=== PATIENT | male | born 1960 | race Caucasian/White ===

== ENCOUNTER → 2018-08-28 | Outpatient (CLI) | payer BC ==
[~2018-08-28] MED LIST: GADOBENATE DIMEGLUMINE 1 ML IV ONE
--- NOTE | 2018-08-28 16:26 | Diagnostic Imaging Report ---
Exam: Brain MRI without and with IV contrast History: Vertigo Comparison studies: Prior brain MRI of 11/12/2010 is unavailable on the PACS for comparison at time of dictation. Technique: Precontrast sagittal and axial T2 FS, axial DWI, precontrast axial T1 FLAIR, axial T2*GRE and postcontrast axial coronal T1 FS and axial T2 FLAIR through the whole brain. Additional 3-D T2 with axial, coronal and sagittal reformats, axial T1 FLAIR and postcontrast axial and coronal T1 FLAIR through the IACs were obtained. Intravenous contrast: 20 cc MultiHance. Findings: Scalp: No abnormal signal. No masses. Bone marrow: Normal in signal intensity. Brain sulci: Appropriate for age. Ventricles: Normal in size . No hydrocephalus. Parenchyma: No abnormal signal intensities. Enhancing under malleus. No masses, hemorrhage, or acute or chronic ischemic insults. Cerebellopontine angle cisterns: No mass. IACs: Normal nerves VII and VIII. Labyrinths: Grossly normal formation. No abnormal signal intensity or enhancement. Mastoids: No abnormal signal intensity or enhancement. Suprasellar region: No abnormalities. Craniocervical junction: Patent foramen magnum. No Chiari one malformation. Vessels: Normal flow-voids in the arteries and sinuses. Right vertebral artery is hypoplastic. IMPRESSION: No abnormalities. Signed by: Dr. Ryan Colin M.D. on 08/28/2018 4:22 PM
== END ==
LOC: MRI 14:09
PROVIDERS: ATTEND Psychiatry & Neurology Neurology
DX: R42 Dizziness and giddiness (principal)
CPT/HCPCS: 70553

== ENCOUNTER → 2019-01-01 | Outpatient (CLI) | payer BC ==
--- NOTE | 2019-01-01 16:14 | Diagnostic Imaging Report ---
Radiographs of the left finger - 3 views HISTORY: Abnormal growth on left fifth digit area COMPARISON: None available. FINDINGS: Bones: No acute displaced fracture. Osseous alignment is within normal limits. Joints: The joint spaces are well-maintained. Soft tissues: Mild soft tissue swelling about the fifth finger. No radiopaque foreign body. IMPRESSION: Mild soft tissue swelling about the fifth finger. No radiopaque foreign body. Signed by: Dr. Rafael Franco M.D. on 01/01/2019 4:10 PM
== END ==
LOC: RAD 14:56
PROVIDERS: ATTEND Internal Medicine
DX: M79.642 Pain in left hand (principal)

== ENCOUNTER → 2019-05-03 | Day surgery (SDC) | payer BC ==
[2019-05-02 11:22] LABS: BASOPHILS % 0.5 % (0.0-1.0); EOSINOPHILS # (AUTO) 0.2 (0.0-0.4); EOSINOPHILS % 2.4 % (0.0-6.0); HEMOGLOBIN 15.3 g/dL (14.0-18.0); LYMPHOCYTES # (AUTO) 2.5 (1.0-3.2); LYMPHOCYTES % 31.1 % (18.0-39.1); MEAN CORPUSCULAR HEMOGLOBIN 28.8 pg (28-32); MEAN CORPUSCULAR HGB CONC 33.3 g/dL (31-35); MEAN CORPUSCULAR VOLUME 86.5 fL (81-99); MONOCYTES # (AUTO) 0.5 (0.2-0.8); MONOCYTES % 6.6 % (4.4-11.3); NEUTROPHILS # (AUTO) 4.8 (2.1-6.9); NEUTROPHILS % 59.2 % (38.7-80.0); PLATELET COUNT 238 x10e3/uL (140-360); RED BLOOD COUNT 5.32 x10e6/uL (4.3-5.7); RED CELL DISTRIBUTION WIDTH 12.9 % (11.7-14.4)
[~2019-05-03] MED LIST changes: +ANDRODERM1 EAC3 TOP; +CYMBALTA30 MG PO; +FENTANYL CITRATE/PF 100MCG/2 ML INJ ONE; -GADOBENATE DIMEGLUMINE 1 ML IV ONE; +JANUVIA100 MG PO; +LAMOTRIGINE100 MG PO; +LEVOTHYROXINE125 MCG PO; +LIDOCAINE HCL 2% LOCAL INJ 5 ML SDV VIAL INJ ONE; +LISINOPRIL10 MG PO; +METFORMIN HCL850 MG PO; +MIDAZOLAM HCL 2 MG/2 ML VIAL ONE; +MIRTAZAPINE30 M1 PO; +OXCARBAZEPINE600 MG PO; +PROPOFOL IV EMULSION 10 MG/ML 50 ML VIAL ONE; +VENLAFAXINE HCL75 MG PO
--- OUTSIDE RECORDS SUMMARY | 2019-05-03 05:34 | XMS REPORT | Summary of Care ---
Author Author [facility] Organization [facility] Address Unknown Phone Unavailable Encounter CORDELIA Tompkins(DANE) [id number] Date(s): 02/01/17 - 02/02/17 [facility] [address] [place] [address]- Discharge Diagnosis: Acute back pain with sciatica Discharge Disposition: Home or Self Care Attending Physician: Opal Lobo DO Vital Signs 1 2 3 Most recent to oldest [Reference Range]: 185.42 cm (02/01/17 11:58 PM) Height 98.0 DegF (02/02/17 2:57 AM) 97.6 DegF (02/01/17 11:58 PM) Temperature Oral [96.4-99.1 DegF] 134/87 mmHg (02/02/17 3:41 AM) 132/91 mmHg (02/02/17 2:57 AM) 146/76 mmHg *HI* (02/01/17 11:58 PM) Blood Pressure [90-140/60-90 mmHg] 18 BRMIN (02/02/17 3:41 AM) 18 BRMIN (02/02/17 2:57 AM) 20 BRMIN (02/01/17 11:58 PM) Respiratory Rate [14-20 BRMIN] 92 bpm (02/02/17 3:41 AM) 100 bpm (02/02/17 2:57 AM) 107 bpm *HI* (02/01/17 11:58 PM) Peripheral Pulse Rate [60-100 bpm] 132.727 kg (02/01/17 11:58 PM) Weight 38.61 m2 (02/01/17 11:58 PM) Body Mass Index Problem List Condition Effective Dates Status Health Status Informant Diabetes(Confirmed) Active HTN Active (hypertension)(Confi rmed) HTN Active (hypertension)(Confi rmed) Hypopituitarism(Conf Active irmed) Spondylitis(Confirme Active d) Osteoarthritis(Confi Active rmed) Allergies, Adverse Reactions, Alerts Substance Reaction Severity Status NKDA Active Medications dexamethasone 8 mg, Route: IVP, ONCE, Dosing Weight 132.727, kg, Priority: STAT, Start date: 0 02/02/17 1:21:00 CDT, Stop date: 02/02/17 1:21:00 CDT Start Date: 02/02/17 Stop Date: 02/02/17 Status: Completed ketOROLAC 30 mg, Route: IVP, Drug form: INJ, ONCE, Dosing Weight 132.727, kg, Priority: ST AT, Start date: 02/02/17 1:22:00 CDT, Stop date: 02/02/17 1:22:00 CDT Start Date: 02/02/17 Stop Date: 02/02/17 Status: Completed morphine Sulfate 2 mg, Route: IVP, ONCE, Dosing Weight 132.727, kg, Priority: STAT, Start date: 0 02/02/17 1:22:00 CDT, Stop date: 02/02/17 1:22:00 CDT Start Date: 02/02/17 Stop Date: 02/02/17 Status: Completed Tylenol with Codeine #4 oral tablet 1 tab, PO, Q6H, PRN Pain, not to exceed 4000 mg acetaminophen per day, X 7 day, # 28 tab, 0 Refill(s) Start Date: 02/02/17 Stop Date: 02/09/17 Status: Ordered Valium 10 mg, Route: IVP, Drug form: INJ, ONCE, Dosing Weight 132.727, kg, Priority: ST AT, Start date: 02/02/17 1:22:00 CDT, Stop date: 02/02/17 1:22:00 CDT Start Date: 02/02/17 Stop Date: 02/02/17 Status: Completed Valium 5 mg oral tablet 5 mg=1 tab, PO, TID, PRN MUSCLE SPASM, X 7 day, # 20 tab, 0 Refill(s) Start Date: 02/02/17 Stop Date: 02/09/17 Status: Ordered Results No data available for this section Immunizations No data available for this section Procedures No data available for this section Social History Social History Type Response Smoking Status Never smoker; Exposure to Tobacco Smoke None; Cigarette Smoking Last 365 Days No; Reg Smoking Cessation Counseling No Assessment and Plan No data available for this section
--- OUTSIDE RECORDS SUMMARY | 2019-05-03 05:34 | XMS REPORT | Summary of Care ---
Author Author [facility] Organization [facility] Address Unknown Phone Unavailable Encounter CORDELIA Tompkins(DANE) [id number] Date(s): 02/05/17 - 02/05/17 [facility] [address] [place] [address]- Discharge Diagnosis: Dorsalgia Discharge Disposition: Home or Self Care Attending Physician: Karlo Franks MD Vital Signs 1 2 3 Most recent to oldest [Reference Range]: 185.42 cm (02/05/17 10:47 AM) Height 98.4 DegF (02/05/17 1:38 PM) 98.2 DegF (02/05/17 10:47 AM) Temperature Oral [96.4-99.1 DegF] 135/84 mmHg (02/05/17 1:38 PM) 108/75 mmHg (02/05/17 11:32 AM) 101/61 mmHg (02/05/17 10:47 AM) Blood Pressure [90-140/60-90 mmHg] 16 BRMIN (02/05/17 1:38 PM) 18 BRMIN (02/05/17 10:47 AM) Respiratory Rate [14-20 BRMIN] 88 bpm (02/05/17 1:38 PM) 106 bpm *HI* (02/05/17 11:26 AM) 120 bpm *HI* (02/05/17 10:47 AM) Peripheral Pulse Rate [60-100 bpm] 132.727 kg (02/05/17 10:47 AM) Weight 38.61 m2 (02/05/17 10:47 AM) Body Mass Index Problem List Condition Effective Dates Status Health Status Informant Back pain(Confirmed) Active Diabetes(Confirmed) Active HTN Active (hypertension)(Confi rmed) HTN Active (hypertension)(Confi rmed) Hypopituitarism(Conf Active irmed) Spondylitis(Confirme Active d) Osteoarthritis(Confi Active rmed) Sciatic Active pain(Confirmed) Allergies, Adverse Reactions, Alerts Substance Reaction Severity Status NKDA Active Medications dexamethasone 10 mg, Route: IM, ONCE, Dosing Weight 132.727, kg, Priority: STAT, Start date: 0 02/05/17 11:19:00 CDT, Stop date: 02/05/17 11:19:00 CDT Start Date: 02/05/17 Stop Date: 02/05/17 Status: Completed morphine Sulfate 4 mg, Route: IVP, ONCE, Dosing Weight 132.727, kg, Priority: STAT, Start date: 0 02/05/17 12:11:00 CDT, Stop date: 02/05/17 12:11:00 CDT Start Date: 02/05/17 Stop Date: 02/05/17 Status: Completed [place] 10/325 oral tablet 1 tab, PO, Q6H, PRN Pain, X 5 day, # 19 tab, 0 Refill(s) Start Date: 02/05/17 Stop Date: 02/10/17 Status: Ordered [place] 10/325 oral tablet 1 tab, Route: PO, Drug Form: TAB, Dosing Weight 132.727, kg, ONCE, STAT, Start d ate: 02/05/17 11:19:00 CDT, Stop date: 02/05/17 11:19:00 CDT Start Date: 02/05/17 Stop Date: 02/05/17 Status: Completed NS (Bolus) IV 1,000 mL, 1,000 ml/hr, Infuse Over: 1 hr, Route: IV, 1,000, Drug form: INJ, ONCE , Priority: STAT, Dosing Weight 132.727 kg, Start date: 02/05/17 11:44:00 CDT, D uration: 1 doses or times, Stop date: 02/05/17 11:44:00 CDT Start Date: 02/05/17 Stop Date: 02/05/17 Status: Completed predniSONE 20 mg oral tablet See Special Instructions, PO, Daily, 4 day regimen: Day 1 - 40 mg (2 tabs) Day 2 - 30 mg (1 1/2 tabs) Day 3 - 20 mg (1 tab) Day 4 - 10 mg (1/2 tab), X 4 day, # 6 tab, 0 Refill(s) Start Date: 02/05/17 Stop Date: 02/09/17 Status: Ordered Valium 10 mg, Route: PO, ONCE, Dosing Weight 132.727, kg, Priority: STAT, Start date: 0 02/05/17 11:19:00 CDT, Stop date: 02/05/17 11:19:00 CDT Start Date: 02/05/17 Stop Date: 02/05/17 Status: Completed Zofran 4 mg, Route: IVP, Drug form: INJ, ONCE, Dosing Weight 132.727, kg, Priority: STA T, Start date: 02/05/17 12:11:00 CDT, Stop date: 02/05/17 12:11:00 CDT Start Date: 02/05/17 Stop Date: 02/05/17 Status: Completed Results No data available for this section Immunizations No data available for this section Procedures No data available for this section Social History Social History Type Response Smoking Status Never smoker; Exposure to Tobacco Smoke None; Cigarette Smoking Last 365 Days No; Reg Smoking Cessation Counseling No Assessment and Plan No data available for this section
--- OUTSIDE RECORDS SUMMARY | 2019-05-03 05:34 | XMS REPORT ---
Author Author [facility] Address Unknown Phone Unavailable Care Team Providers Care Director Digital Communications Name Role Phone ALY CORDOVA Unavailable Unavailable LANDON RAMSAY Unavailable Unavailable Problems This patient has no known problems. Allergies, Adverse Reactions, Alerts This patient has no known allergies or adverse reactions. Medications This patient has no known medications. Results Test Description Test Time Test Comments Text Results Atomic Results Result Comments FINGER LEFT 2019-01-01 16:09:00 [facility] [address] [place] [address] Patient Name: MIRZA JARVIS MR #: [id number] : 1960 Age/Sex: 58/M Req #: [id number] Adm Physician: Ordered by: ALY ESPINOZA MD Report #: [id number] Location: [facility] Room/Bed: Procedure: [id number] DX/FINGER LEFT Exam Date: 01/01/19 Exam Time: 1550 REPORT STATUS: Signed Radiographs of the left finger - 3 views HISTORY: Abnor mal growth on left fifth digit area COMPARISON: None available. FINDINGS: Bones: No acute displaced fracture. Osseous alignment is within normal limits. Joints: The joint spaces are well-maintained. Soft tissues: Mild soft tissue swelling about the fifth finger. No radiopaque foreign body. IMPRESSION: Mild soft tissue swelling about the fifth finger. No radiopaque foreign body. Signed by: Dr. Rafael Franco M.D. on 01/01/2019 4:10 PM Dictated By: RAFAEL FRANCO MD, MD 09 Transcribed By: SHAYLEE on 01/01/191609 COPY TO: ALY CORDOVA MD MRI BRAIN WOW 2018-08-28 16:17:00 [place] [address] Patient Name: MIRZA JARVIS MR #: [id number] : 1960 Age/Sex: 58/M Req #: [id number] Adm Physician: Ordered by: LANDON RAMSAY MD Report #: [id number] Location: MRI Room/Bed: Procedure: [id number] MRI/MRI BRAIN WOW Exam Date: Exam Time: REPORT STATUS: Signed Exam: Brain MRI without and with IV contrast History: Vertigo Comparison studies: Prior brain MRI of 11/12/2010 is unavailable on the PACS for comparison at time of dictation. Technique: Precontrast sagittal and axial T2 FS, axial DWI, precontrast axial T1 FLAIR, axial T2*GRE and postcontrast axial coronal T1 FS and axial T2 FLAIR through the whole brain. Additional 3-D T2 with axial, coronal and sagittal reformats, axial T1 FLAIR and postcontrast axial and coronal T1 FLAIR through the IACs were obtained. Intravenous contrast: 20 cc MultiHance. Findings: Scalp: No abnormal signal. No masses. Bone marrow: Normal in signal intensity. Brain sulci: Appropriate for age. Ventricles: Normal in size . No hydrocephalus. Parenchyma: No abnormal signal intensities. Enhancing under malleus. No masses, hemorrhage, or acute or chronic ischemic insults. Cerebellopontine angle cisterns: No mass. IACs: Normal nerves VII and VIII. Labyrinths: Grossly normal formation. No abnormal signal intensity or enhancement. Mastoids: No abnormal signal intensity or enhancement. Suprasellar region: No abnormalities. Craniocervical junction: Patent foramen magnum. No Chiari one malformation. Vessels: Normal flow-voids in the arteries and sinuses. Right vertebral artery is hypoplastic. IMPRESSION: No abnormalities. Signed by: Dr. Jamie Colin M.D. on 08/28/2018 4:22 PM Dictated By: JAMIE COLIN MD [id number] Transcribed By: SHAYLEE on 08/28/18 1622 COPY TO: LANDON RAMSAY MD
--- OUTSIDE RECORDS SUMMARY | 2019-05-03 05:34 | XMS REPORT | Continuity of Care Document ---
Author Author [facility] Interface Address Unknown Phone Unavailable Problems Problem Status Onset Date Classification Date Reported Comments Source Discharge Diagnosis: Dorsalgia 02/05/2017 02/08/2017 [facility] BACK PAIN Active 02/05/2017 [facility] Discharge Diagnosis: Acute back pain with sciatica 02/02/2017 02/05/2017 [facility] Discharge Diagnosis: Other spondylosis with radiculopathy, lumbosacral region 02/01/2017 02/04/2017 [facility] Diabetes Active Problem 02/08/2017 [facility] HTN (<span ID="[id number]">Confirmed</span>) Active Problem 02/08/2017 [facility] HTN (<span ID="[id number]">Confirmed</span>) Active Problem 02/08/2017 [facility] Hypopituitarism Active Problem 02/08/2017 [facility] Spondylitis Active Problem 02/08/2017 [facility] Osteoarthritis Active Problem 02/08/2017 [facility] Back pain Active Problem 02/08/2017 [facility] Sciatic pain Active Problem 02/08/2017 [facility] Medications Medication Details Route Status Patient Instructions Ordering Provider Order Date Source Acetaminophen 325 MG / Hydrocodone Bitartrate 10 MG Oral Tablet [Cathay 10/325] 1 tab, PO, Q6H, PRN Pain, X 5 day, # 19 tab, 0 Refill(s) Active 02/05/2017 [facility] predniSONE 20 mg oral tablet See Special Instructions, PO, Daily, 4 day regimen: Day 1 - 40 mg (2 tabs) Day 2 - 30 mg (1 1/2 tabs) Day 3 - 20 mg (1 tab) Day 4 - 10 mg (1/2 tab), X 4 day, # 6 tab, 0 Refill(s) Active 02/05/2017 [facility] Zofran 4 mg, Route: IVP, Drug form: INJ, ONCE, Dosing Weight 132.727, kg, Priority: STAT, Start date: 02/05/17 12:11:00 CDT, Stop date: 02/05/17 12:11:00 CDT Inactive 02/05/2017 [facility] Morphine 4 mg, Route: IVP, ONCE, Dosing Weight 132.727, kg, Priority: STAT, Start date: 02/05/17 12:11:00 CDT, Stop date: 02/05/17 12:11:00 CDT Inactive 02/05/2017 [facility] Sodium Chloride 0.154 MEQ/ML Injectable Solution 1,000 mL, 1,000 ml/hr, Infuse Over: 1 hr, Route: IV, 1,000, Drug form: INJ, ONCE, Priority: STAT, Dosing Weight 132.727 kg, Start date: 02/05/17 11:44:00 CDT, Duration: 1 doses or times, Stop date: 02/05/17 11:44:00 CDT Inactive 02/05/2017 [facility] Dexamethasone 10 mg, Route: IM, ONCE, Dosing Weight 132.727, kg, Priority: STAT, Start date: 02/05/17 11:19:00 CDT, Stop date: 02/05/17 11:19:00 CDT Inactive 02/05/2017 [facility] Acetaminophen 325 MG / Hydrocodone Bitartrate 10 MG Oral Tablet [Cathay 10/325] 1 tab, Route: PO, Drug Form: TAB, Dosing Weight 132.727, kg, ONCE, STAT, Start date: 02/05/17 11:19:00 CDT, Stop date: 02/05/17 11:19:00 CDT Inactive 02/05/2017 [facility] Valium 10 mg, Route: PO, ONCE, Dosing Weight 132.727, kg, Priority: STAT, Start date: 02/05/17 11:19:00 CDT, Stop date: 02/05/17 11:19:00 CDT Inactive 02/05/2017 [facility] Diazepam 5 MG Oral Tablet [Valium] 5 mg=1 tab, PO, TID, PRN MUSCLE SPASM, X 7 day, # 20 tab, 0 Refill(s) Active 02/02/2017 [facility] Acetaminophen 300 MG / Codeine Phosphate 60 MG Oral Tablet [Tylenol with Codeine #4] 1 tab, PO, Q6H, PRN Pain, not to exceed 4000 mg acetaminophen per day, X 7 day, # 28 tab, 0 Refill(s) Active 02/02/2017 [facility] Morphine 2 mg, Route: IVP, ONCE, Dosing Weight 132.727, kg, Priority: STAT, Start date: 02/02/17 1:22:00 CDT, Stop date: 02/02/17 1:22:00 CDT Inactive 02/02/2017 [facility] Ketorolac 30 mg, Route: IVP, Drug form: INJ, ONCE, Dosing Weight 132.727, kg, Priority: STAT, Start date: 02/02/17 1:22:00 CDT, Stop date: 02/02/17 1:22:00 CDT Inactive 02/02/2017 [facility] Valium 10 mg, Route: IVP, Drug form: INJ, ONCE, Dosing Weight 132.727, kg, Priority: STAT, Start date: 02/02/17 1:22:00 CDT, Stop date: 02/02/17 1:22:00 CDT Inactive 02/02/2017 [facility] Dexamethasone 8 mg, Route: IVP, ONCE, Dosing Weight 132.727, kg, Priority: STAT, Start date: 02/02/17 1:21:00 CDT, Stop date: 02/02/17 1:21:00 CDT Inactive 02/02/2017 [facility] Ketorolac Tromethamine 10 MG Oral Tablet 10 mg=1 tab, PO, TID, PRN Pain, X 5 day, # 15 tab, 0 Refill(s) Active 02/01/2017 [facility] Cyclobenzaprine hydrochloride 10 MG Oral Tablet [Flexeril] 10 mg, PO, TID, PRN Muscle Spasm, X 7 day, # 30 tab, 0 Refill(s) Active 02/01/2017 [facility] Acetaminophen 325 MG / Hydrocodone Bitartrate 5 MG Oral Tablet [Cathay 5/325] 1 tab, Route: PO, Drug Form: TAB, Dosing Weight 132.273, kg, ONCE, STAT, Start date: 02/01/17 7:55:00 CDT, Stop date: 02/01/17 7:55:00 CDT Inactive 02/01/2017 [facility] Flexeril 10 mg, Route: PO, ONCE, Dosing Weight 132.273, kg, Priority: STAT, Start date: 02/01/17 7:55:00 CDT, Stop date: 02/01/17 7:55:00 CDT Inactive 02/01/2017 [facility] Ketorolac 60 mg, Route: IM, ONCE, Dosing Weight 132.273, kg, Priority: STAT, Start date: 02/01/17 7:55:00 CDT, Stop date: 02/01/17 7:55:00 CDT Inactive 02/01/2017 [facility] Allergies, Adverse Reactions, Alerts Substance Category Reaction Severity Reaction type Status Date Reported Comments Source Immunizations Immunization Date Given Site Status Last Updated Comments Source Results Order Name Results Value Reference Range Date Interpretation Comments Source Abdomen/Pelvis wo IV contrast CT Abdomen/Pelvis wo IV contrast CT Patient Name: MIRZA JARVIS : 1960; Age: 57 years y/o Male MR: [id number] Study: Abdomen/Pelvis wo IV contrast CT 02/05/2017 11:18 AM CDT Referring physician:Karlo Franks MD Clinical Indication: Back pain; Back pain for 1 week, radiating to upper back and lower left leg. lumbar pain with radiculopathy. 3rd visit - dlp: 1138.42; Comparison: None TECHNIQUE: Sequential trans-axial images were obtained with a multi-detector helical CT without administration of IV contrast. Coronal and sagittal reconstructions were obtained. FINDINGS: LUNG BASES: 2 mm noncalcified nodule right middle lobe, image 4 series 2. Mild atelectatic or fibrotic changes within the right lung base. No pleural effusion. Heart size normal. ABDOMINAL ORGANS: No focal liver or splenic abnormality. 5 mm nonobstructive right renal lower pole calyceal calculus. No other urinary tract calculus. No ureteral dilatation or obstruction. The adrenals, pancreas and gallbladder are unremarkable. PERITONEUM AND RETROPERITONEUM: No abdominal or pelvic lymphadenopathy. No free intraperitoneal air. No abnormal fluid collection identified in the abdomen or pelvis. The abdominal aorta is unremarkable. BOWEL: No bowel abnormality identified in the abdomen or pelvis. The appendix is unremarkable. PELVIS: No pelvic mass. Bladder is unremarkable. BONES: Mild facet degenerative changes within the lumbar spine at L4-L5. Disc spaces are relatively well-maintained. No other bony lesion appreciated within the lumbar spine or pelvis. IMPRESSION: 5 mm nonobstructive right renal lower pole calyceal calculus. No urinary tract obstruction or ureteral calculus, however. No other acute abdominal or pelvic finding. Mild right lower lobe subsegmental atelectasis or fibrosis. 2 mm noncalcified nodule in the right middle lobe. Mild lower lumbar spine degenerative changes. SL: [id number] 02/05/2017 - - Read by: Jer Victoria MD Dictated Date/time: 02/05/17 11:55 Electronically Signed by: Jer Victoria MD 02/05/17 12:03 FINAL REPORT [facility] Vital Signs Vital Sign Value Date Comments Source Temperature Oral (F) 98.4 F 02/05/2017 [facility] Systolic (mm Hg) 135 02/05/2017 [facility] Diastolic (mm Hg) 84 02/05/2017 [facility] Respitory Rate 16 02/05/2017 [facility] Heart Rate 88 02/05/2017 [facility] Systolic (mm Hg) 108 02/05/2017 [facility] Diastolic (mm Hg) 75 02/05/2017 [facility] Heart Rate 106 02/05/2017 [facility] Weight 132.727 02/05/2017 [facility] BMI Calculated 38.61 02/05/2017 [facility] Height 185.42 cm 02/05/2017 [facility] Temperature Oral (F) 98.2 F 02/05/2017 [facility] Heart Rate 120 02/05/2017 [facility] Respitory Rate 18 02/05/2017 [facility] Systolic (mm Hg) 101 02/05/2017 [facility] Diastolic (mm Hg) 61 02/05/2017 [facility] Systolic (mm Hg) 134 02/02/2017 [facility] Diastolic (mm Hg) 87 02/02/2017 [facility] Heart Rate 92 02/02/2017 [facility] Respitory Rate 18 02/02/2017 [facility] Systolic (mm Hg) 132 02/02/2017 [facility] Diastolic (mm Hg) 91 02/02/2017 [facility] Temperature Oral (F) 98.0 F 02/02/2017 [facility] Heart Rate 100 02/02/2017 [facility] Respitory Rate 18 02/02/2017 [facility] Weight 132.727 02/02/2017 [facility] Temperature Oral (F) 97.6 F 02/02/2017 [facility] Respitory Rate 20 02/02/2017 [facility] Height 185.42 cm 02/02/2017 [facility] BMI Calculated 38.61 02/02/2017 [facility] Heart Rate 107 02/02/2017 [facility] Systolic (mm Hg) 146 02/02/2017 [facility] Diastolic (mm Hg) 76 02/02/2017 [facility] Systolic (mm Hg) 138 02/01/2017 [facility] Diastolic (mm Hg) 75 02/01/2017 [facility] Heart Rate 87 02/01/2017 [facility] Temperature Oral (F) 98.1 F 02/01/2017 [facility] Heart Rate 95 02/01/2017 [facility] Weight 132.273 02/01/2017 [facility] BMI Calculated 38.47 02/01/2017 [facility] Temperature Oral (F) 97.8 F 02/01/2017 [facility] Height 185.42 cm 02/01/2017 [facility] Heart Rate 115 02/01/2017 [facility] Respitory Rate 18 02/01/2017 [facility] Systolic (mm Hg) 148 02/01/2017 [facility] Diastolic (mm Hg) 89 02/01/2017 [facility] Encounters Location Location Details Encounter Type Encounter Number Reason For Visit Attending Provider ADM Date DC Date Status Source [facility] Emergency [id number] Shahram Paredes 02/01/2017 02/01/2017 [facility] Emergency [id number] Opal Hyatten 02/02/2017 02/02/2017 [facility] Emergency [id number] Karlo Franks 02/05/2017 02/05/2017 [facility] Outpatient [id number] MARIN ALMANZA 02/17/2017 Active [facility] Procedures Procedure Code Date Perfomer Comments Source
--- OUTSIDE RECORDS SUMMARY | 2019-05-03 05:34 | XMS REPORT | Summary of Care ---
Author Author [facility] Organization [facility] Address Unknown Phone Unavailable Encounter CORDELIA Tompkins(DANE) [id number] Date(s): 02/01/17 - 02/01/17 [facility] [address] [place] [address]- Discharge Diagnosis: Other spondylosis with radiculopathy, lumbosacral region Discharge Disposition: Home or Self Care Attending Physician: Shahram Paredes DO Vital Signs 1 2 3 Most recent to oldest [Reference Range]: 185.42 cm (02/01/17 7:39 AM) Height 98.1 DegF (02/01/17 10:14 AM) 97.8 DegF (02/01/17 7:39 AM) Temperature Oral [96.4-99.1 DegF] 138/75 mmHg (02/01/17 10:14 AM) 148/89 mmHg *HI* (02/01/17 7:39 AM) Blood Pressure [90-140/60-90 mmHg] 18 BRMIN (02/01/17 7:39 AM) Respiratory Rate [14-20 BRMIN] 87 bpm (02/01/17 10:14 AM) 95 bpm (02/01/17 9:01 AM) 115 bpm *HI* (02/01/17 7:39 AM) Peripheral Pulse Rate [60-100 bpm] 132.273 kg (02/01/17 7:39 AM) Weight 38.47 m2 (02/01/17 7:39 AM) Body Mass Index Problem List Condition Effective Dates Status Health Status Informant Diabetes(Confirmed) Active HTN Active (hypertension)(Confi rmed) HTN Active (hypertension)(Confi rmed) Hypopituitarism(Conf Active irmed) Spondylitis(Confirme Active d) Osteoarthritis(Confi Active rmed) Allergies, Adverse Reactions, Alerts Substance Reaction Severity Status NKDA Active Medications Flexeril 10 mg, Route: PO, ONCE, Dosing Weight 132.273, kg, Priority: STAT, Start date: 0 02/01/17 7:55:00 CDT, Stop date: 02/01/17 7:55:00 CDT Start Date: 02/01/17 Stop Date: 02/01/17 Status: Completed Flexeril 10 mg oral tablet 10 mg, PO, TID, PRN Muscle Spasm, X 7 day, # 30 tab, 0 Refill(s) Start Date: 02/01/17 Stop Date: 02/08/17 Status: Ordered ketOROLAC 60 mg, Route: IM, ONCE, Dosing Weight 132.273, kg, Priority: STAT, Start date: 0 02/01/17 7:55:00 CDT, Stop date: 02/01/17 7:55:00 CDT Start Date: 02/01/17 Stop Date: 02/01/17 Status: Completed ketOROLAC 10 mg oral tablet 10 mg=1 tab, PO, TID, PRN Pain, X 5 day, # 15 tab, 0 Refill(s) Start Date: 02/01/17 Stop Date: 02/06/17 Status: Ordered Belt 5/325 oral tablet 1 tab, Route: PO, Drug Form: TAB, Dosing Weight 132.273, kg, ONCE, STAT, Start d ate: 02/01/17 7:55:00 CDT, Stop date: 02/01/17 7:55:00 CDT Start Date: 02/01/17 Stop Date: 02/01/17 Status: Completed Results No data available for [...]
[2019-05-03 08:20] VITALS: BP 121/86
== END | disposition home or self-care (01) ==
LOC: OR 05:20
PROVIDERS: ATTEND Internal Medicine Gastroenterology
DX: Z12.11 Encounter for screening for malignant neoplasm of colon (principal); D12.4 Benign neoplasm of descending colon; K62.1 Rectal polyp; K64.8 Other hemorrhoids; Z71.3 Dietary counseling and surveillance; I10 Essential (primary) hypertension; E11.9 Type 2 diabetes mellitus without complications; E66.9 Obesity, unspecified; I48.91 Unspecified atrial fibrillation; M06.9 Rheumatoid arthritis, unspecified; M54.5 Low back pain; J45.909 Unspecified asthma, uncomplicated; G47.33 Obstructive sleep apnea (adult) (pediatric); J44.9 Chronic obstructive pulmonary disease, unspecified; E23.0 Hypopituitarism; K44.9 Diaphragmatic hernia without obstruction or gangrene; N20.0 Calculus of kidney; F32.9 Major depressive disorder, single episode, unspecified; F41.9 Anxiety disorder, unspecified; Z01.810 Encounter for preprocedural cardiovascular examination; Z01.812 Encounter for preprocedural laboratory examination; Z79.84 Long term (current) use of oral hypoglycemic drugs; Z68.38 Body mass index [BMI] 38.0-38.9, adult
CPT/HCPCS: 36415 ×2; 45385; 82948; 85025; 93005; J2001; J2250; J2704; 45378